=== PATIENT | female | born 1985 | race Caucasian/White ===

== ENCOUNTER 2018-01-20 15:09 | Emergency (ER) | payer MEDICAID ==
[~2018-01-20] VITALS: Ht 172.7 cm; Wt 56.7 kg
[~2018-01-20 15:09] MED LIST: BIRTH CONTROL PO; ELA25 PO; OMEP40EC1 PO
[2018-01-20 15:17] VITALS: BP 144/105
[2018-01-20] MEDS: NACL 0.9% 1,000 ML IV ONE (15:42)
[2018-01-20] MEDS: ONDANSETRON 4 MG/2 ML VIAL IVP ONE (15:46)
[2018-01-20] MEDS: HALOPERIDOL IM 5 MG/ML VIAL IVP ONE (15:47)
[2018-01-20] MEDS: FAMOTIDINE 20 MG/2 ML VIAL IVP ONE (16:19)
[2018-01-20 17:06] VITALS: BP 142/88
[2018-01-20 17:51] LABS: BARBITURATE, URINE NEG. ng/ml (NEG <=200); BENZODIAZEPINE, URINE NEG. ng/mL (NEG <=200); CANNABINOID, URINE POS. ng/mL (NEG <=50); COCAINE, URINE NEG. ng/mL (NEG <=300); OPIATE, URINE NEG. ng/mL (NEG <=2000); PHENCYCLIDINE SCREEN,URINE NEG. ng/mL (NEG <=25)
== END 2018-01-20 17:06 | disposition home or self-care (01) ==
LOC: MED 15:09
DX: F12.929 Cannabis use, unspecified with intoxication, unspecified (principal); R11.2 Nausea with vomiting, unspecified; Z88.8 Allergy status to other drugs, medicaments and biological substances; Z79.899 Other long term (current) drug therapy
CPT/HCPCS: 80305; 96361; 96374; 96375; 99283; J1630; J2405; J3490; J7030

== ENCOUNTER 2021-11-12 16:07 | Emergency (ER) | payer MEDICAID ==
[~2021-11-12] VITALS: Ht 172.7 cm; Wt 51.3 kg
[~2021-11-12 16:07] MED LIST changes: +AMIT25TA39 PO; -ELA25 PO; -OMEP40EC1 PO; +OMEP40EC24 PO
[2021-11-12 16:18] VITALS: BP 156/85
[2021-11-12] MEDS ORDERED: CAPSAICIN 0.025% CRE 60 GM TUBE TP STA (17:21)
[2021-11-12] MEDS ORDERED: diphenhydrAMINE 50 MG/ML VIAL IVP ONE ×2 (17:25→18:00)
[2021-11-12] MEDS ORDERED: HALOPERIDOL IM 5 MG/ML VIAL IM ONE (17:25)
[2021-11-12] MEDS ORDERED: NACL 0.9% 1,000 ML IV ONE (17:25)
[2021-11-12 17:41] LABS: BASOPHILS % (AUTO) 0.2 % (0.0-2.0); EOSINOPHILS % (AUTO) 0.2 % (0.0-4.0); HEMATOCRIT 42.6 % (36-48); HEMOGLOBIN 14.6 g/dL (12.0-16.0); LYMPHOCYTES % (AUTO) 7.7 % (20.5-51.1); MEAN CORPUSCULAR HEMOGLOBIN 31 pg (27-31); MEAN CORPUSCULAR HGB CONC 34 g/dL (33-37); MEAN CORPUSCULAR VOLUME 90.8 fL (80-94); MONOCYTES # (AUTO) 0.7 K/uL (0.8-1.0); MONOCYTES % (AUTO) 5.4 % (1.7-9.3); NEUTROPHILS # (AUTO) 11.4 K/uL (1.8-7.7); NEUTROPHILS % (AUTO) 86.5 % (42.2-75.2); PLATELET COUNT (AUTO) 261 K/uL (140-450); RED CELL DISTRIBUTION WIDTH 12.8 % (11.6-13.7); WHITE BLOOD COUNT (AUTO) 13.2 K/uL (4.8-10.8)
--- NOTE | 2021-11-12 17:44 | NUR ---
PT C/O GENERALIZED ABDOMINAL PAIN WITH N/V X2 DAYS.
[2021-11-12 18:05] LABS: ALBUMIN 4.5 g/dL (3.4-5.0); ANION GAP 17.4 (8-16); CARBON DIOXIDE 25.8 mmol/L (21-32); CREATININE 0.8 mg/dL (0.6-1.3); POTASSIUM 3.2 mmol/L (3.5-5.1)
--- NOTE | 2021-11-12 20:00 | NUR ---
PT C/O OF ABD PAIN N/V. PT IS RESTING IS ON BEDSIDE [employer]. PT IS A&OX4. N/V X 2 DAYS. DENIES CP OR SOB. HOB ELEVATED. BED AT LOWEST POSITION
[2021-11-12] MEDS ORDERED: ONDA-188 PO (22:39)
[2021-11-12 22:50] VITALS: BP 112/63
--- NOTE | 2021-11-12 22:50 | NUR ---
Patient discharged with v/s stable. Written and verbal after care instructions given and explained. Patient verbalized understanding. Ambulatory with steady gait. All questions addressed prior to discharge. Advised to follow up with PMD.
--- NOTE | 2021-11-12 22:51 | NUR ---
The patient's care was reviewed and supervised by Edita Cardona RN.
== END 2021-11-12 22:50 | disposition home or self-care (01) ==
LOC: MED 16:07
DX: R10.13 Epigastric pain (principal); R11.2 Nausea with vomiting, unspecified; F12.90 Cannabis use, unspecified, uncomplicated; Z79.899 Other long term (current) drug therapy; Z88.8 Allergy status to other drugs, medicaments and biological substances; Z88.1 Allergy status to other antibiotic agents
CPT/HCPCS: 36415; 80053; 83690; 85025; 96361; 96372; 96374; 96375; 99284; J1200; J1630; J7030